=== PATIENT | male | born 1970 | race Caucasian/White ===

== ENCOUNTER 2022-05-27 09:26 | Outpatient (CLI) | payer BC, SELFPAY ==
[2022-05-27 14:38] LABS: Estimated Glomerular Filt Rate 92 ml/min
== END 2022-05-27 09:27 | disposition home or self-care (01) ==
LOC: FRMREF 10:27
PROVIDERS: PCP Family Medicine; Visit Provider Family Medicine
DX: U07.1 COVID-19 (principal)
CPT/HCPCS: 82565

== ENCOUNTER 2022-08-01 16:06 | Outpatient (CLI) | payer BC, SELFPAY | END 2022-08-01 16:07 | disposition home or self-care (01) | PROVIDERS: PCP Family Medicine; Visit Provider Family Medicine | DX: E03.9 Hypothyroidism, unspecified (principal) | CPT/HCPCS: 84443 ==